=== PATIENT | male | born 1940 | race Caucasian/White ===

== ENCOUNTER 2019-06-26 18:27 | Inpatient (IN) | payer OTHER, BC, SELFPAY ==
[~2019-06-26] VITALS: Ht 185.4 cm; Wt 70.4 kg
[2019-06-26 18:27] VITALS: BP_SYST 80
[~2019-06-26 18:27] MED LIST: HYDR-1189 PO
[2019-06-26] MEDS ORDERED: ALBUTEROL SULFATE 0.083% 2.5 MG/3 ML VIAL.NEB INH ONE (18:45)
[2019-06-26] MEDS ORDERED: LEVOFLOXACIN 500 MG/D5W 100 ML IV ONE (18:45)
[2019-06-26 19:02] LABS: MEAN CORPUSCULAR HEMOGLOBIN 28 pg (27-31); MEAN CORPUSCULAR HGB CONC 32 % (32-36); MEAN CORPUSCULAR VOLUME 89 fL (79.0-98.0); PLATELET COUNT (AUTO) 575 K/uL (130-430); RED BLOOD CELL COUNT(AUTO) 2.11 MIL/uL (4.2-6.2); RED CELL DISTRIBUTION WIDTH 17.2 % (9.0-15.0); WHITE BLOOD COUNT (AUTO) 14.3 K/uL (4.8-10.8)
[2019-06-26 19:38] LABS: INR 1.1 (0.80-1.20); PROTHROMBIN TIME 11.1 SECS (9.5-12.5)
[2019-06-26 19:40] LABS: HEMATOCRIT 18.8 % (36-54)
[2019-06-26] MEDS ORDERED: INSULIN REGULAR, HUMAN 10 UNITS/0.1 ML INJ IVP ONE (20:00)
[2019-06-26] MEDS ORDERED: DEXTROSE 50% JECT 50 ML DISP.SYRIN IVP ONE (20:00)
[2019-06-26] MEDS ORDERED: CALCIUM CHLORIDE 1 GM/10ML VIAL (13.6 mEq Ca++/VIAL) IVP ONE (20:00)
[2019-06-26] MEDS ORDERED: SODIUM POLYSTYRENE SULFONATE 15 GM/60 ML UDBTL PO ONE (20:00)
[2019-06-26] MEDS ORDERED: SODIUM BICARBONATE 8.4% JECT 50 MEQ/50 ML SYRINGE IVP ONE (20:00)
[2019-06-26 20:22] LABS: ANION GAP 13 (5-15); CALCIUM 7.8 mg/dL (8.4-11.0); CHLORIDE 108 mmol/L (98-107); CREATININE 1.04 mg/dL (0.55-1.30); GLUCOSE 152 mg/dL (70-99); POTASSIUM 3.6 mmol/L (3.5-5.1); SODIUM SERUM 144 mmol/L (136-145); TOTAL BILIRUBIN 0.4 mg/dL (0.0-1.0); UREA NITROGEN, BLOOD 48 mg/dL (8-21)
[2019-06-26 20:23] LABS: ALANINE AMINOTRANSFERASE 155 U/L (12-78); ALBUMIN 1.3 g/dL (3.4-4.8); ASPARTATE AMINOTRANSFERASE 155 U/L (10-37)
[2019-06-26] MEDS ORDERED: KETAMINE HCL 500 MG/10 ML VIAL ONE (20:31)
[2019-06-26] MEDS ORDERED: fentaNYL CITRATE/PF 100 MCG/2 ML AMP IVP ONE (21:00)
[2019-06-26] MEDS ORDERED: PROPOFOL DRIP 100 ML IV ONE (21:00)
[2019-06-26] MEDS ORDERED: fentaNYL CITRATE/PF 100 MCG/2 ML AMP ONE (21:09)
[2019-06-26 21:11] LABS: BAND % (MANUAL) 24 % (0-6); BASOPHILS % (MANUAL) 0 % (0-2); EOSINOPHILS % (MANUAL) 0 % (0-7); LYMPHOCYTES % (MANUAL) 13 % (20-46); MONOCYTES % (MANUAL) 8 % (0-11)
[2019-06-26] MEDS ORDERED: CALCIUM GLUCONATE 1 GM/10 ML VIAL ONE (22:02)
[2019-06-26] MEDS ORDERED: PIPERACILLIN/TAZO 3.375 GM in NS 50 ML IV ONE (22:15)
[2019-06-26] MEDS ORDERED: AZITHROMYCIN 500 MG in NS 250 ML IV ONE (22:15)
[2019-06-26] MEDS ORDERED: NOREPINEPHRINE BITARTRATE 4 MG in NS 246 ML IV ONE (22:30)
[2019-06-26] MEDS ORDERED: PIPERACILLIN/TAZOBACTAM 3.375 GM/VIAL (ZOSYN) IV ONE (22:37)
[2019-06-26] MEDS ORDERED: AZITHROMYCIN 500 MG/VIAL (ZITHROMAX) IV ONE (22:38)
[2019-06-26] MEDS ORDERED: NOREPINEPHRINE 4 MG/4 ML VIAL IV ONE (22:46)
[2019-06-26] MEDS ORDERED: NACL 0.9% 1,000 ML IV ONE (23:25)
[2019-06-27] VITALS (8 sets, daily range): BP systolic 72–132
[2019-06-27] MEDS ORDERED: LORazepam 2 MG/ML VIAL IVP PRN (00:30)
[2019-06-27] MEDS ORDERED: ONDANSETRON HCL 4 MG/2 ML VIAL IVP PRN (00:30)
[2019-06-27] MEDS ORDERED: NOREPINEPHRINE 4 MG/4 ML VIAL IV ONE ×3 (01:27→05:56)
[2019-06-27] MEDS ORDERED: fentaNYL CITRATE/PF 100 MCG/2 ML AMP ONE ×2 (01:37→02:16)
[2019-06-27] MEDS ORDERED: IPRATROPIUM BROM 0.5 MG/2.5 ML VIAL.NEB (ATROVENT) INH SCH (03:00)
[2019-06-27] MEDS ORDERED: ALBUTEROL SULFATE 0.083% 2.5 MG/3 ML VIAL.NEB INH SCH (03:00)
[2019-06-27] MEDS: D5/0.45 NS 1,000 ML IV SCH ×2 (05:49→10:16)
[2019-06-27 05:59] LABS: BILIRUBIN,URINE 1+ (NEGATIVE); BLOOD, URINE NEGATIVE (NEGATIVE); CLARITY/URINE CLEAR (CLEAR); COLOR,URINE YELLOW (YELLOW); GLUCOSE,URINE NEGATIVE (NEGATIVE); KETONES,URINE NEGATIVE (NEGATIVE); LEUKOCYTE ESTERASE ,URINE NEGATIVE (NEGATIVE); NITRITE, URINE NEGATIVE (NEGATIVE); PH,URINE 5.5 (5.0-8.0); PROTEIN URINE 2+ (NEGATIVE); UROBILINOGEN,URINE 0.2 (0.2-1.0)
[2019-06-27 06:04] LABS: BACTERIA,URINE MODERATE /HPF (None Seen)
[2019-06-27] MEDS ORDERED: PIPERACILLIN/TAZOBACTAM 3.375 GM/VIAL (ZOSYN) IV ONE (06:05)
[2019-06-27] MEDS: PIPERACILLIN/TAZO 3.375/DEX-IS 50 ML IV SCH ×2 (06:24→12:00)
[2019-06-27] MEDS ORDERED: DOPamine PREMIX 250 ML IV PRN (07:00)
[2019-06-27] MEDS ORDERED: DOPamine PREMIX 250 ML IV ONE (07:08)
[2019-06-27] MEDS ORDERED: NS 250 ML IV ONE (07:45)
[2019-06-27] MEDS ORDERED: NACL 0.9% 1,000 ML IV ONE (07:45)
[2019-06-27] MEDS ORDERED: NOREPINEPHRINE BITARTRATE 4 MG in NS 246 ML IV PRN (08:00)
[2019-06-27] MEDS ORDERED: ALBUMIN HUMAN 5% 500 ML IV ONE (08:15)
[2019-06-27] MEDS ORDERED: MORPHINE I.V. DRIP 100 ML IV SCH (10:30)
[2019-06-27] MEDS ORDERED: ROCURONIUM BROMIDE 10 MG/ML (ZEMURON) IV ONE (12:03)
[2019-06-27] MEDS ORDERED: ETOMIDATE 20 MG/ 10 ML VIAL (AMIDATE) IVP ONE (12:03)
[2019-06-27] MEDS ORDERED: LEVOFLOXACIN 500 MG/D5W 100 ML IV SCH (18:00)
[2019-06-27] MEDS ORDERED: AZITHROMYCIN 500 MG in NS 250 ML IV SCH (22:00)
== END 2019-06-27 10:39 | disposition expired | DRG 871 ==
LOC: SED 18:27 → SIC 22:22
PROVIDERS: ADMIT Preventive Medicine Preventive Medicine/Occupational Environmental Medicine; ATTEND Preventive Medicine Preventive Medicine/Occupational Environmental Medicine
PROC: 0BH17EZ Insertion of Endotracheal Airway into Trachea, Via Natural or Artificial Opening (ICD-10-PCS; principal; 2019-06-27)
PROC: 5A1935Z Respiratory Ventilation, Less than 24 Consecutive Hours (ICD-10-PCS; 2019-06-27)
PROC: 30233N1 Transfusion of Nonautologous Red Blood Cells into Peripheral Vein, Percutaneous Approach (ICD-10-PCS; 2019-06-27)
DX: A41.9 Sepsis, unspecified organism (principal); E43 Unspecified severe protein-calorie malnutrition; J18.9 Pneumonia, unspecified organism; R65.21 Severe sepsis with septic shock; J96.01 Acute respiratory failure with hypoxia; E87.2 Acidosis; J44.0 Chronic obstructive pulmonary disease with (acute) lower respiratory infection; C34.90 Malignant neoplasm of unspecified part of unspecified bronchus or lung; Z20.828 Contact with and (suspected) exposure to other viral communicable diseases; D64.9 Anemia, unspecified; Z51.5 Encounter for palliative care; I46.9 Cardiac arrest, cause unspecified; R73.9 Hyperglycemia, unspecified; D47.3 Essential (hemorrhagic) thrombocythemia; E83.51 Hypocalcemia; R74.0 Nonspecific elevation of levels of transaminase and lactic acid dehydrogenase [LDH]; E88.09 Other disorders of plasma-protein metabolism, not elsewhere classified; Z85.118 Personal history of other malignant neoplasm of bronchus and lung; Z68.20 Body mass index [BMI] 20.0-20.9, adult
CPT/HCPCS: 36415; 36430; 36600; 71045; 80053; 81000-TC; 82803-TC; 82962; 83605; 83880; 84484; 85007; 85027; 85610-TC; 85730-TC; 86710; 86886; 86900; 86901; 86920; 87040-TC; 87070-TC; 87081; 87086; 87186-TC; 87205-TC; 94002; 94003; 94640; 96365; 96375; 99291; J0456; J0610; J1265; J1815; J1956; J2270; J2543; J2704; J3010; J3490; J7040; J7050; J7613; P9021; P9041